=== PATIENT | male | born 1940 | race Caucasian/White ===

== ENCOUNTER 2017-03-28 00:57 | Emergency (ER) | payer MEDICARE, MEDICAID ==
[2017-03-28] MEDS ORDERED: DiphenhydrAMINE 50 mg/ml Inj IVP STA (02:05)
[2017-03-28] MEDS ORDERED: DiphenhydrAMINE 50 mg/ml Inj ONE (02:12)
[2017-03-28 02:35] LABS: BASO % 0.8 % (0.0-2.0); EOS # 0.2 K/uL (0.0-0.7); EOS % 3.8 % (0.0-4.0); HEMOGLOBIN 13.5 g/dL (12.0-18.0); LYMPH # 1.5 K/uL (1.0-4.3); LYMPH % 33.4 % (20.0-40.0); MEAN CELL VOLUME 81.2 fL (80.0-94.0); MEAN CORPUSCULAR HEMOGLOBIN 26.7 pg (27.0-31.0); MEAN CORPUSCULAR HGB CONC 32.8 g/dL (33.0-37.0); MONO # 0.5 K/uL (0.0-0.8); MONO % 11.1 % (0.0-10.0); NEUT # 2.3 K/uL (1.8-7.0); NEUT % 50.9 % (50.0-75.0); RBC 5.05 Mil/uL (4.40-5.90); RED CELL DISTRIBUTION WIDTH 12.5 % (11.5-14.5); WHITE BLOOD COUNT 4.6 K/uL (4.8-10.8)
[2017-03-28 02:46] LABS: ALBUMIN 3.9 g/dL (3.5-5.0)
[2017-03-28 02:49] LABS: ALB/GLOB RATIO 1.3 (1.0-2.1); ALT/SGPT 40 U/L (21-72); AST/SGOT 28 U/L (17-59); BLOOD UREA NITROGEN 17 mg/dL (9-20); GFR AFRICAN-AMERICAN > 60; GFR NON-AFRICAN AMERICAN > 60; LIPASE 134 U/L (23-300)
[2017-03-28 02:50] LABS: CALCIUM 8.9 mg/dl (8.6-10.4)
--- NOTE | 2017-03-28 03:30 | CT ---
EXAM: CT Head Without Intravenous Contrast CLINICAL HISTORY: 76 years old, male; Pain; Headache; Headache not specified; Additional info: Headache x 3 weeks, sinus pressure TECHNIQUE: Axial computed tomography images of the head/brain without intravenous contrast. This CT exam was performed using one or more of the following dose reduction techniques: automated exposure control, adjustment of the mA and/or kV according to patient size, and/or use of iterative reconstruction technique. Coronal and sagittal reformatted images were created and reviewed. EXAM DATE/TIME: 03/28/2017 2:04 AM COMPARISON: No relevant prior studies available. FINDINGS: Mild frontal atrophy. No intracranial hemorrhage. No intracranial edema. No evidence of infarct. Trace mucosal thickening ethmoid sinuses and right frontal sinus. The mastoid air cells are clear. IMPRESSION: No acute intracranial findings.
--- NOTE | 2017-03-28 04:00 | C.PDOC ---
History Of Present Illness 76 year old male with a PMHx of blindness who presents to the ER with son for a complaint of nonradiating facial pressure and frontal headache intermittently for the past 3 weeks. As per son, patient went PMD who gave Rx for eyedrops; however, patient has had not relief of symptoms. Denies fever, chills, neck pain , weakness, numbness, or recent trauma. Time Seen by Provider: 03/28/17 01:41 Chief Complaint (Nursing): Headache History Per: Family History/Exam Limitations: no limitations Onset/Duration Of Symptoms: Days Current Symptoms Are (Timing): Still Present Quality: Pressure Preceeding Symptoms: None Associated Symptoms: denies: Nausea, Vomiting Recent travel outside of the [place]: No Past Medical History Reviewed: Historical Data, Nursing Documentation, Vital Signs Vital Signs: Last Vital Signs Temp 98.5 F 03/28/17 04:37 Pulse 58 L 03/28/17 04:37 Resp 16 03/28/17 04:37 BP 133/81 03/28/17 04:37 Pulse Ox 96 03/28/17 06:35 - Medical History PMH: Diabetes (type 2), HTN, Hypercholesterolemia Surgical History: No Surg Hx Family History: States: Unknown Family Hx - Social History Hx Tobacco Use: No Hx Alcohol Use: No Hx Substance Use: No - Immunization History Hx Tetanus Toxoid Vaccination: No Hx Influenza Vaccination: No Hx Pneumococcal Vaccination: No Review Of Systems Except As Marked, All Systems Reviewed And Found Negative. Constitutional: Negative for: Fever, Chills Cardiovascular: Negative for: Chest Pain Respiratory: Negative for: Shortness of Breath Neurological: Positive for: Headache. Negative for: Weakness, Numbness Physical Exam - Physical Exam Appears: Non-toxic Skin: Normal Color, Warm, Dry Head: Atraumatic, Normacephalic Eye(s): bilateral: Other (Pupils dilated and nonreactive) Oral Mucosa: Moist Throat: No Erythema, No Exudate Neck: Normal, Normal ROM, Supple Chest: Symmetrical, No Tenderness Cardiovascular: Rhythm Regular, No Friction Rub, No Murmur Respiratory: Normal Breath Sounds, No Rales, No Rhonchi, No Wheezing Gastrointestinal/Abdominal: Soft, No Tenderness Neurological/Psych: Oriented x3, Normal Speech, Normal Cognition, Normal Motor Gait: Steady ED Course And Treatment - Laboratory Results Result Diagrams: 03/28/17 02:30 03/28/17 02:30 O2 Sat by Pulse Oximetry: 96 (Room air) Pulse Ox Interpretation: Normal - CT Scan/US CT Head Other Rad Studies (CT/US): Read By Radiologist, Radiology Report Reviewed CT/US Interpretation: IMPRESSION: No acute intracranial findings. Medical Decision Making Medical Decision Making: Plan: * EKG * CXR * CT Head * Benadryl * Reglan On reevaluation, patient's pain has much improved; Lungs are CTA, heart is RRR, abdomen is soft, non-tender and tolerating PO well. will discharge and advised to follow up with legal investigator. Disposition - Disposition Referrals: Amairani Taylor MD [Primary Care Provider] - Disposition: HOME/ ROUTINE Disposition Time: 04:25 Condition: GOOD Additional Instructions: Follow up with the medical doctor within 1-2 days. Return if worsened, Prescriptions: Acetaminophen/Butalbital/Caf [Fioricet] 1 tab PO TID PRN #20 tab PRN Reason: Headache Loratadine [Claritin] 10 mg PO DAILY #10 tab predniSONE [Prednisone] 20 mg PO BID #10 tab Instructions: Sinusitis (ED) Forms: [facility] (Czech) - Clinical Impression Clinical Impression: Headache, Sinusitis - Scribe Statement The provider has reviewed the documentation as recorded by the Scribmady Bryant All medical record entries made by the Scribe were at my direction and personally dictated by me. I have reviewed the chart and agree that the record accurately reflects my personal performance of the history, physical exam, medical decision making, and the department course for this patient. I have also personally directed, reviewed, and agree with the discharge instructions and disposition.
[2017-03-28 04:37] VITALS: BP 133/81; PULSE 58; RESP 16; TEMP 98.5
[2017-03-28 04:42] VITALS: O2SAT 96
--- NOTE | 2017-03-28 09:13 | RAD ---
PROCEDURE: CHEST RADIOGRAPH, 1 VIEW HISTORY: Epigastric abdominal pain COMPARISON: 06/01/2016 FINDINGS: LUNGS: Mild venous congestion. Right hilar prominence. PLEURA: No pneumothorax or pleural fluid seen. CARDIOVASCULAR: Normal. OSSEOUS STRUCTURES: No significant abnormalities. VISUALIZED UPPER ABDOMEN: Normal. OTHER FINDINGS: None. IMPRESSION: Mild venous congestion. Right hilar prominence.
--- NOTE | 2017-03-29 18:44 | CARD ---
APPROVED REPORT EKG Measurement Heart [id number] <Conclusion> Sinus bradycardia with 1st degree AV block Otherwise normal ECG
== END 2017-03-28 05:02 | disposition home or self-care (01) ==
LOC: SUPCPDRO 00:57 → C.ER 00:57
DX: R51 Headache (principal); J32.9 Chronic sinusitis, unspecified
CPT/HCPCS: 70450; 71010; 80053; 83690; 84484; 85025; 93005; 96365; 96375; 99284; J1200; J2765